=== PATIENT | male | born 1990 | race Caucasian/White ===

== ENCOUNTER 2023-05-12 08:41 | Emergency (ER) | payer MEDICAID, SELFPAY ==
[2023-05-12 08:53] VITALS: BP 139/65; PULSE 78; RESP 15; TEMP 37.3; O2SAT 95
--- NOTE | 2023-05-12 09:03 | ED.GENADUL_ITS ---
Discharge Plan Disposition Patient Disposition: Home Condition: Stable Discharge Details Clinical Impression: Allergic reaction Primary Care Provider: None,None ED Provider: Fran Panchal Home Meds and New Rx's Prescriptions: Continued ibuprofen [Advil] 200 mg tablet 600 mg PO Q6H Discharge Instructions Instructions: General Allergic Reaction (ED) Additional Instructions: Some wheezeYou were seen in the emergency department for your allergic reaction. Seeing as well as edema in your eyelids consistent with allergic conjunctivitis. We have provided you with an IV dose of Solu-Medrol as well as p.o. loratadine which is a second-generation antihistamine and is more effective than Benadryl. You had already taken 25 mg of Benadryl prior to arrival. You improved after our treatments here including a nebulizer of albuterol. Please monitor your symptoms at home for the rest of the day, will be reasonable to take another dose of Benadryl in 4 hours, take additional dose of ibuprofen in 4 hours. Please return to an emergency department immediately for any return of symptoms especially with multisystem complaints like nausea/vomiting, diffuse rash to entire body or return of wheezing, mouth irritation increasing swelling of the eyes. Discharge Data Discharge Date/Time-TO BE ENTERED AT DEPARTURE: 05/12/23 11:02 Medical Decision Making This dictation utilizes [id number] dictation software and may contain unedited grammatical errors. 32 y/o M presents to ED today with a chief complaint of allergic reaction- ate a protein bar brand that he eats almost daily that may contain nuts, but hasn't had a problem in the past- endorses about 20-30 mins later starting to have wheezing, eyelid swelling, and itchy hands. Onset and characteristics include 30 mins of progressing symptoms, stable in nature without respiratory distress or nausea/vomiting/fever, denies rash. 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 Family and social history: noncontributory. Pertinent exam findings / vital signs include wheezing throughout lungs, no urticaria, mild allergic conjunctivitis. Differential / pathologies of concern include allergic reaction, anaphylaxis. Diagnostic studies of: -none. Interventions of: -125mg IV solu-medrol, 10mg PO loratidine, 2.5mg neb albuterol, 1L NS IVF, observation. ED Course: Patient presents with allergic reaction likely to a protein bar which she has had many times before which may contain traces of knots. He has a anaphylactic reaction to peanuts and tree nuts. He had mild allergic conjunctivitis without urticaria, some wheezing. His itchiness in his hands and his wheezing went away with the IV Solu-Medrol, p.o. loratadine, nebulizer of albuterol. I counseled him to monitor his symptoms at home, take additional doses of antihistamine in about 4 to 6 hours of 1 tab of Benadryl as well as take ibuprofen again later today and return to the ED for any return of wheezing or multisystem complaint. Findings not consistent with anaphylaxis, the patient experienced a mild allergic reaction without nausea or vomiting, no airway concerns at this time and he was improving over 2.5-hour observation. Disposition of Allergic Reaction. Patient verbalized understanding of the plan and return to ED criteria and engaged in shared decision making. Medical Records Medical records reviewed: Yes I reviewed the patient's medical records. HPI General Date/Time Provider Initiated Documentation: 05/12/23 09:01 . HPI Narrative: 32 year-old male presents to ED today by POV/ambulating with his girlfriend with a chief complaint of allergic reaction- eyelid swelling, some wheezing with onset around 0730 this morning. He had a protein bar and ibuprofen this morning- he reports that he has anaphylaxis to peanuts and tree nuts, and this protein bar has packaging that states may contain nuts, but he eats this brand regularly without issue. Quality described as mild wheezing, itchy hands, eyelid swelling, no radiation to hives, shortness of breath, nausea, vomiting, dizziness. Severity is described as 4-5/10. Palliating factors include took 25mg benadryl prior to arrival, does not carry an EpiPen but has had to use one in his childhood and adolescent years x2. Provoking factors include possible nut ingestion. Patient not anticoagulated. Related Data Home Medications Medication Instructions Recorded Confirmed ibuprofen 200 mg tablet (Advil) 600 mg PO Q6H 05/12/23 05/12/23 Allergies Allergy/AdvReac Type Severity Reaction Status Date / Time peanut oil Allergy Severe Anaphylaxis Unverified 05/12/23 09:04 tree nuts Allergy Severe Anaphylaxis Uncoded 05/12/23 09:04 General Stated Complaint: Allergic TONIA: 3 Review of Systems All systems reviewed & are unremarkable except as noted in HPI and below PFSH All Active Problems (Updated 05/12/23 @ 10:44 by ARMOND Royal) Allergic reaction (Acute) Social History Smoking/Tobacco Use Status: Current every day Tobacco Type: cigarettes Smoking risk assessment performed?: Yes Alcohol Intake: never Substance use type: does not use and heroin Exam Narrative Exam Narrative: GENERAL APPEARANCE: Well-nourished, non-toxic, awake and alert, atraumatic, no acute distress. SKIN: Warm, pink, dry, intact, without rashes/lesions/ulcerations, no hives/urticaria/wheals HEAD: Normocephalic, atraumatic, normal hair distribution for gender/age. EYES: Pupils PERRLA, EOMs intact without nystagmus, normal conjunctiva, no exudates on lids/lashes. eyelid edema consistent with allergic conjunctivitis ENT: Nares patent, no circumoral cyanosis, no facial swelling NECK: Supple, trachea midline, painless cervical ROM. LUNGS/CHEST: Lungs- wheezing present throughout, good air movement, non-labored respirations, normal A/P diameter, symmetrical expansion, no chest wall deformity HEART (CV/PV): Regular rate and rhythm without murmur, no peripheral edema, no JVD. ABDOMEN: Soft, non-distended, no guarding. MSK: Normal ROM, no swelling/deformity to bilateral UEs or LEs, moving all extremities without weakness, no cyanosis, spine midline without tenderness, normal curvature. NEURO: Mental Status AAOx4 - alert to person, place, time, events No facial droop, no forehead involvement. Motor: No focal weakness - strength 5/5 in bilateral UEs and LEs, proximal and distal, symmetric. Sensory: sensation intact to light touch globally. Gait normal: patient ambulated without ataxia into ED room. PSYCH: euthymic, cooperative, pleasant, appropriate speech Course Vital Signs Vital signs: Vital Signs Temperature 37.3 C 05/12/23 08:53 Pulse 78 05/12/23 08:53 Respiratory Rate 15 05/12/23 08:53 Blood Pressure 139/65 05/12/23 08:53 Pulse Oximetry 95 05/12/23 08:53 Temperature 37.3 C 05/12/23 08:53 Temperature Source Temporal Artery Scan 05/12/23 08:53 Pulse 78 05/12/23 08:53 Respiratory Rate 15 05/12/23 08:53 Blood Pressure 139/65 05/12/23 08:53 Blood Pressure Position Sitting 05/12/23 08:53 Pulse Oximetry 95 05/12/23 08:53 Oxygen Delivery Method Room Air 05/12/23 08:53 Oxygen Flow Rate 0 05/12/23 08:53 Pain Level 0 05/12/23 08:53
[2023-05-12 09:23] VITALS: RESP 5; O2SAT 98
[2023-05-12] MEDS: Albuterol 2.5 MG/3 ML INH SOLN VIAL UPD (09:23)
[2023-05-12] MEDS: Loratidine 10 MG TAB PO (09:23)
[2023-05-12] MEDS: Normal Saline 1,000 ML 1000 ML IV (09:24)
[2023-05-12] MEDS: methylPREDNISolone SUCC 125 MG VIAL IVP (09:24)
--- OUTSIDE RECORDS SUMMARY | 2023-05-12 09:28 | XMS_ITS | CCD ---
Author Name Unknown Address [address] [place] [address] [phone] Organization Unknown Address [address] [place] [address] [id number] Care Team Providers Care Sock Examiner Name Role Phone ADALBERTO RAZA Attending Physician [phone] Vital Signs Unknown or Not Available. Allergies Allergy Code Allergy Type Reaction Status NUTS 0 Food allergy Anaphylaxis Active Procedures Unknown or Not Available. History of Immunizations Unknown or Not Available. Problems Unknown or Not Available. Results Unknown or Not Available. Active Medications Medication Code Dose Units Frequency Route Modificatio n Start Date/Time EpiPen Auto-Injector 0.3MG/0.3ML;N o Stren Multiple Routes Kit [id number] 1 EACH NEEDED INTRAMUSCULAR 06/13 19:23 Prescription Detail INJECT 1 EACH INTRAMUSCULAR NEEDED Medications Administered During Visit Unknown or Not Available. Encounters Encounter Diagnosis Diagnosis Code Start Date Right lower quadrant abdominal swelling, mass an d lump [id number] 07/15/2022 Social History Smoking Status Code Start Date End Date Current every day smoker [id number] Patient Decision Aids Unknown or Not Available. Discharge Instructions You were admitted to on 07/15/2022 11:59 with a principal diagnosis of Right lower quadrant abdominal swelling, mass and lump You were discharged from on 07/15/2022 11:59 Should you have any questions prior to discharge, please contact a member of your healthcare team. If you have left the hospital and have any questions, please contact your primary care physician. Chief Complaint and Reason For Visit Chief Complaint Date of Onset ABDOMINAL MASS RLQ Function Status Unknown or Not Available. Plan of Care Unknown or Not Available. Referral/Transition of Care Unknown or Not Available.
--- OUTSIDE RECORDS SUMMARY | 2023-05-12 09:28 | XMS_ITS | CCD ---
Author Name Unknown Address [address] [place] [address] [phone] Organization Unknown Address [address] [place] [address] [id number] Care Team Providers Care Seamer Elastic Band Name Role Phone CHRIS RIVAS Attending Physician [phone] SHANI VU Er Physician 9 [phone] LAVELL Linder Registered Nurse [phone] Vital Signs Vital Sign Value Unit Date/Time Recent/Initial ? BMI (Body Mass Index) 23.01 kg/m^2 09/06/2022 18: 09 Initial VS Weight Measured 165 lbs 09/06/2022 18:09 Ini tial VS Height 71 in 09/06/2022 18:09 Initial VS BSA (Body Surface Area) 1.94 m^2 09/06/2022 1 8:09 Initial VS BP Systolic 127 mmHg 09/06/2022 18:09 Initial VS BP Diastolic 79 mmHg 09/06/2022 18:09 Initia l VS Respiratory Rate 18 bpm 09/06/2022 18:09 In itial VS Heart Rate 87 bpm 09/06/2022 18:09 Initial VS O2 % BldC Oximetry 97 % 09/06/2022 18:09 Initial VS Body Temperature 37.1 degrees 09/06/2022 18:09 In itial VS Allergies Allergy Code Allergy Type Reaction Status NUTS 0 Food allergy Anaphylaxis Active Procedures Unknown or Not Available. History of Immunizations Unknown or Not Available. Problems Unknown or Not Available. Results Unknown or Not Available. Active Medications Medication Code Dose Units Frequency Route Modificatio n Start Date/Time EpiPen Auto-Injector 0.3MG/0.3ML;N o Stren Multiple Routes Kit [id number] 1 EACH NEEDED INTRAMUSCULAR 06/13 19:23 Prescription Detail INJECT 1 EACH INTRAMUSCULAR NEEDED Medications Administered During Visit Unknown or Not Available. Encounters Encounter Diagnosis Diagnosis Code Start Date Contusion of left thigh, initial encounter [id number] XA 09/06/2022 Social History Smoking Status Code Start Date End Date Current every day smoker [id number] Patient Decision Aids Unknown or Not Available. Discharge Instructions You were admitted to [facility] on 09/06/2022 17:34 with a principal diagnosis of Contusion of left thigh, initial encounter You were discharged from [facility] on 09/06/2022 20:21 Should you have any questions prior to discharge, please contact a member of your healthcare team. If you have left the hospital and have any questions, please contact your primary care physician. Chief Complaint and Reason For Visit Chief Complaint Date of Onset SKI ACCIDENT RIGHT LEG 09/06/2022 Function Status Unknown or Not Available. Plan of Care Unknown or Not Available. Referral/Transition of Care Unknown or Not Available.
--- OUTSIDE RECORDS SUMMARY | 2023-05-12 09:28 | XMS_ITS | CCD ---
Author Name Unknown Address [address] [place] [address] [phone] Organization Unknown Address [address] [place] [address] [id number] Care Team Providers Care Indoor Plant Technician Name Role Phone CORY ARROYO Sonia Attending Physician [phone] Vital Signs Unknown or Not Available. Allergies Allergy Code Allergy Type Reaction Status NUTS 0 Food allergy Anaphylaxis Active Procedures Unknown or Not Available. History of Immunizations Unknown or Not Available. Problems Unknown or Not Available. Results Unknown or Not Available. Active Medications Medication Code Dose Units Frequency Route Modificatio n Start Date/Time EpiPen Auto-Injector 0.3MG/0.3ML;N o Stren Multiple Routes Kit [id number] 1 EACH NEEDED INTRAMUSCULAR 06/13 19:23 Prescription Detail INJECT 1 EACH INTRAMUSCULAR NEEDED Medications Administered During Visit Unknown or Not Available. Encounters Encounter Diagnosis Diagnosis Code Start Date Headache, unspecified R519 02/09/2023 Social History Smoking Status Code Start Date End Date Current every day smoker [id number] Patient Decision Aids Unknown or Not Available. Discharge Instructions You were admitted to [facility] on 02/09/2023 15:10 with a principal diagnosis of Headache, unspecified You were discharged from [facility] on 02/09/2023 15:10 Should you have any questions prior to discharge, please contact a member of your healthcare team. If you have left the hospital and have any questions, please contact your primary care physician. Chief Complaint and Reason For Visit Chief Complaint Date of Onset DAILY HEADACHE Function Status Unknown or Not Available. Plan of Care Unknown or Not Available. Referral/Transition of Care Unknown or Not Available.
== END 2023-05-12 11:02 | disposition home or self-care (01) ==
PROVIDERS: Emergency Provider Physician Assistant
DX: R06.2 Wheezing (principal); T78.40XA Allergy, unspecified, initial encounter; H10.13 Acute atopic conjunctivitis, bilateral
CPT/HCPCS: 94640; 96361; 96374; 99284; J2930; J7613